=== PATIENT | female | born 1990 | race Caucasian/White ===

== ENCOUNTER 2019-10-03 11:00 | Emergency (ER) | payer OTHER ==
[~2019-10-03] VITALS: Ht 160 cm; Wt 79.4 kg
[2019-10-03 11:00] VITALS: BP_SYST 129
--- NOTE | 2019-10-03 11:00 | NUR ---
BROUGHT BACK TO BED #5 AND TRIAGED. REPORT GIVEN TO ANGELINA
--- NOTE | 2019-10-03 11:10 | NUR ---
Patient arrived via POV, AAOx4, and ambulatory with steady gait. Patient c/c of cramping and vaginal bleeding. Patient states estimated 7 weeks . Onset of slight cramping and spotting 3 days ago. Patient notes dark red blood. Will continue to follow up and monitor.
--- NOTE | 2019-10-03 11:12 | NUR ---
ER at bedside examining patient.
[2019-10-03 11:32] LABS: BASOPHILS % (AUTO) 0.5 % (0.0-2.0); EOSINOPHILS # (AUTO) 0.1 K/uL (0.0-0.4); EOSINOPHILS % (AUTO) 1.2 % (0.0-4.0); HEMATOCRIT 41.3 % (36-48); HEMOGLOBIN 13.9 g/dL (12.0-16.0); LYMPHOCYTES % (AUTO) 32.1 % (20.5-51.5); MEAN CORPUSCULAR HEMOGLOBIN 27 pg (27-31); MEAN CORPUSCULAR HGB CONC 34 % (32-36); MEAN CORPUSCULAR VOLUME 81 fL (79.0-98.0); MONOCYTES # (AUTO) 0.7 K/uL (0.0-1.0); MONOCYTES % (AUTO) 7.9 % (1.7-9.3); NEUTROPHILS # (AUTO) 5.4 K/uL (1.8-7.7); NEUTROPHILS % (AUTO) 58.3 % (40.0-70.0); PLATELET COUNT (AUTO) 282 K/uL (130-430); RED BLOOD CELL COUNT(AUTO) 5.12 MIL/uL (4.2-6.2); RED CELL DISTRIBUTION WIDTH 14.4 % (9.0-15.0); WHITE BLOOD COUNT (AUTO) 9.3 K/uL (4.8-10.8)
[2019-10-03 11:46] LABS: CREATININE 0.65 mg/dL (0.55-1.30); POTASSIUM 3.9 mmol/L (3.5-5.1)
--- NOTE | 2019-10-03 11:50 | NUR ---
Patient taken to ultrasound via wheelchair, escorted by tech. Will follow up upon return.
[2019-10-03 12:13] LABS: TOTAL BILIRUBIN 0.4 mg/dL (0.0-1.0)
--- NOTE | 2019-10-03 12:20 | NUR ---
[place] transvaginal ultrasound. Patient tolerated well, aware of possible delayed results. Will continue to follow up and monitor.
--- NOTE | 2019-10-03 12:54 | NUR ---
Patient returned to room from ultrasound, ambulatory, and escorted by tech.
[2019-10-03 13:17] VITALS: BP_SYST 124
--- NOTE | 2019-10-03 13:17 | NUR ---
Patient given written and verbal discharge instructions and verbalizes understanding. ER MD discussed with patient the results and treatment provided. Patient in stable condition. ID arm band removed. Rx not given. Patient educated on pain management and to follow up with PMD. Pain Scale 2/10, cramping. Opportunity for questions provided and answered. Medication side effect fact sheet provided.
== END 2019-10-03 13:17 | disposition home or self-care (01) ==
LOC: SED 11:00
DX: O20.0 Threatened abortion (principal); Z3A.01 Less than 8 weeks gestation of pregnancy; Z88.6 Allergy status to analgesic agent
CPT/HCPCS: 36415; 76801; 76817; 80053; 84702-TC; 85025; 99284